=== PATIENT | male | born 1930 | race Caucasian/White ===

== ENCOUNTER → 2016-12-31 | Outpatient (CLI) | payer OTHER, MEDICARE ==
[~2016-12-31] MED LIST: B-COMPLEX PLUS1 EACH PO; COZAAR 50 MG TA50 M2 PO; NORVASC10 MG PO; UNICOMPLEX M TA1 TA1 PO
--- NOTE | ~2016-12-31 | EEG ---
[facility] [place]is [place] [address] ELECTROENCEPHALOGRAM Name: RAH NASH Room #: [facility].#: [id number] Admission: 12/31/16 Attend Phys: Harlan Kessler MD Discharge: Date of : 30 Report #: [id number] THIS REPORT FOR: //name// CC: Harlan Koroma DATE OF SERVICE: 12/31/2016 This patient is being evaluated for question of TIA. EEG was done by placing the electrodes by standard 10-20 system of electrode placement. Both referential and sequential montages were used for recording. Background activity in this patient's EEG is about 9 Hz and 20 microvolts. It is a symmetrical activity. The patient became drowsy and that was associated with bilateral slowing and vertex sharp waves. Photic stimulation is unremarkable. Throughout the record, no active epileptiform activity was noticed. IMPRESSION: This patient's EEG demonstrates mild intermixed theta range slowing on both sides. That is a nonspecific finding, which can occur with encephalopathy, effect of psychotropic medication, dementia, etc. This patient's heart sometime looks irregular. That should be further checked as clinically indicated. There is also question of sleep apnea, the computer system technician noticed. Thank you very much for this referral. <ELECTRONICALLY SIGNED> By: Harlan Kessler MD 01/01/17 1933 [id number] Harlan Kessler MD /emilee
== END ==
LOC: NEURO 12-29 08:47
DX: G45.9 Transient cerebral ischemic attack, unspecified (principal)

== ENCOUNTER → 2020-06-11 | Outpatient (CLI) | payer OTHER, MEDICARE | LOC: SJCVC 13:21 | PROVIDERS: ATTEND Internal Medicine | DX: I10 Essential (primary) hypertension (principal); I73.9 Peripheral vascular disease, unspecified; E78.5 Hyperlipidemia, unspecified; G45.9 Transient cerebral ischemic attack, unspecified; G47.33 Obstructive sleep apnea (adult) (pediatric); Z99.89 Dependence on other enabling machines and devices ==